=== PATIENT | male | born 1975 | race Caucasian/White ===

== ENCOUNTER 2020-04-13 15:40 | Emergency (ER) | payer OTHER ==
[~2020-04-13] VITALS: Ht 185.4 cm; Wt 118.3 kg
[2020-04-13] MEDS ORDERED: NAPROXEN 250 MG TAB PO ONE (16:45)
[2020-04-13] MEDS ORDERED: NAPR-837 PO (17:49)
[2020-04-13] MEDS ORDERED: BACI500O8 TOP (17:49)
[2020-04-13] MEDS ORDERED: VOLT1GEL15 TOP (17:49)
[2020-04-13] MEDS ORDERED: QC A650T3 PO (17:53)
[2020-04-13] MEDS ORDERED: ACETAMINOPHEN 325 MG TAB PO ONE (18:00)
[2020-04-13 18:07] VITALS: BP 146/94
--- NOTE | 2020-04-14 08:14 | REP ---
RIGHT HIP, TWO VIEWS: Two views of the right hip are performed. There is no acute fracture or dislocation. There is mild degenerative change at the hip joint with mild joint space narrowing, subchondral sclerosis, and spurring. IMPRESSION: Mild degenerative changes. No acute abnormalities. Electronically Signed by Shahid Alanis MD 04/16/2020 09:56 A
--- NOTE | 2020-04-14 08:15 | REP ---
RIGHT ANKLE, TWO VIEWS: Two views of the right ankle are performed. There is no acute fracture or dislocation. There is mild spurring both anteriorly and posteriorly of the distal tibia. There is mild spurring of the dorsal distal talus and adjacent navicular bone. Ankle mortise appears anatomic. IMPRESSION: Mild degenerative changes. No fracture or dislocation. Electronically Signed by Shahid Alanis MD 04/16/2020 09:57 A
== END 2020-04-13 18:12 | disposition home or self-care (01) ==
LOC: M ED 15:40
DX: M25.551 Pain in right hip (principal); M25.571 Pain in right ankle and joints of right foot; S90.821A Blister (nonthermal), right foot, initial encounter; S90.822A Blister (nonthermal), left foot, initial encounter; X58.XXXA Exposure to other specified factors, initial encounter; Y92.9 Unspecified place or not applicable; Y93.01 Activity, walking, marching and hiking; Y99.9 Unspecified external cause status; Z72.0 Tobacco use